=== PATIENT | male | born 1950 | race Caucasian/White ===

== ENCOUNTER 2025-03-30 09:26 | Outpatient (REF) | payer MEDICARE, SELFPAY ==
[2025-03-30 14:29] LABS: Hematocrit 42.5 % (42.0-52.0); Hemoglobin 14.0 g/dl (14.0-18.0); Mean Corpuscular HGB Conc 32.9 g/dl (31.0-36.0); Mean Corpuscular Hemoglobin 32.6 pg (27.0-33.0); Mean Corpuscular Volume 99.1 fL (80.0-98.0); NRBC Abs Auto 0.000 X10*3/uL (0.0-0.012); NRBC Pct Auto 0.0 /100WBC (0.0-0.2); Platelet Count 152 X10*3/uL (160-400); Red Blood Count 4.29 X10*6/uL (4.60-5.80); White Blood Count 9.7 X10*3/uL (4.8-10.8)
[2025-03-30 14:51] LABS: Alanine Aminotransferase 19 U/L (0-40); Albumin Level 4.5 g/dL (3.5-5.0); Alkaline Phosphatase 106 U/L (39-117); Anion Gap 14 (12-20); Aspartate Amino Transferase 22 U/L (5-37); Blood Urea Nitrogen 15 mg/dL (9-16); Calcium 8.9 mg/dL (8.4-10.2); Carbon Dioxide 29 mmol/L (22-29); Chloride 105 mmol/L (96-108); Cholesterol 178 mg/dL (<200); Estimated Glomerular Filt Rate > 60; HDL Cholesterol 66 mg/dL (>40); Potassium 4.2 mmol/L (3.3-5.1); Sodium 144 mmol/L (135-145); Total Protein 7.1 g/dL (6.5-8.0); Triglycerides 110 mg/dL (<150)
[2025-03-30 15:04] LABS: Prostate Specific Antigen 1.79 ng/mL (<0.05-4.0)
== END 2025-03-30 09:27 | disposition home or self-care (01) ==
LOC: HO.WFDLDS 09:26
PROVIDERS: Visit Provider Physician Assistant Medical
DX: Z12.5 Encounter for screening for malignant neoplasm of prostate (principal); I48.19 Other persistent atrial fibrillation; E78.00 Pure hypercholesterolemia, unspecified; I26.99 Other pulmonary embolism without acute cor pulmonale; I82.402 Acute embolism and thrombosis of unspecified deep veins of left lower extremity; E78.5 Hyperlipidemia, unspecified; M06.9 Rheumatoid arthritis, unspecified; Z85.038 Personal history of other malignant neoplasm of large intestine; Z79.01 Long term (current) use of anticoagulants; Z79.899 Other long term (current) drug therapy
CPT/HCPCS: 36415; 80053; 80061; 84153; 84443; 85027; 96127; 99202

== ENCOUNTER 2025-03-30 09:26 | Outpatient (AMB) | payer MEDICARE, SELFPAY ==
--- NOTE | 2025-03-30 09:40 | MHC.PC.OV ---
Vital Signs 03/30/25 10:41 03/30/25 11:05 Height 5 ft 11 in Weight 268 lb 4 oz BMI 37.4 BP 114/68 Blood Pressure Location Lt brachial Position Sitting Pulse 102 H 70 Pulse Source Pulse Oximeter Temp 97.9 F Temp Source Temporal Artery Scan Pulse Oximetry (%) 98 Oxygen Delivery Method Room Air Intake Visit Reasons: MAMMALOGIST-PE Intake Note: Moncho presents in the office today to establish care. Allergies tree and shrub pollen Allergy (Verified 03/30/25 10:33) Congestion Medication List - Last Reconciled 03/31/25 by ROCAEL Treviño ascorbate calcium (vitamin C) 500 mg PO BID atorvastatin (Lipitor) 20 mg PO DAILY cholecalciferol (vitamin D3) 10 mcg PO DAILY folic acid 1 mg PO DAILY furosemide (Lasix) 20 mg PO DAILY loratadine (Claritin) 10 mg PO DAILY mecobalamin (vitamin B12) 1,000 mcg PO DAILY methotrexate sodium 12.5 mg PO QWEEK warfarin 5 mg PO DAILY zinc acetate (Galzin) 50 mg PO DAILY Tobacco use date assessed: 03/30/25 Fall risk assessment: No Falls in past year Last assessed Fall Risk: 03/30/25 Dental Screening Dental Screen Date: 03/30/25 Did you have a dental visit in the last 12 months?: Yes Did you have a dental problem in the last 6 months where you did not have access to dental care?: No Was dental information given to patient?: Patient has dentist HPI HPI Comments History of Present Illness Details This is a 74-year-old male with a past medical history of aortic aneurysm, DVT of the lower extremity, complex sleep apnea syndrome, colon cancer, hyperlipidemia, obstructive sleep apnea, lumbar spondylosis, rheumatoid arthritis presenting to establish care. He transferred from Dr. Vanegas. The patient has a history of persistent atrial fibrillation and aortic aneurysm. He is followed by Dr. Montilla. He was told he is not a candidate for ablation. He is treated with warfarin 5 mg daily. He is followed by the [facility] anticoagulation clinic. ZACK-he was told he could not tolerate a CPAP and was not a good surgical candidate. He presented with dyspnea on exertion in 2013 and was diagnosed with a left lower extremity DVT and multiple pulmonary emboli. He was placed on warfarin. He was subsequently diagnosed with colon cancer. He was followed by Dr. Norris until 2019 when he was released from routine follow up. He is followed by [facility]. He has a colonoscopy scheduled this fall. He was diagnosed with rheumatoid arthritis in the 1970s. He is followed by Dr. Gupta. He is currently on methotrexate. ROS: Constitutional: No unexplained weight loss, fever, chills, fatigue or night sweats. Eyes: No vision changes Respiratory: No shortness of breath, cough or sputum production. Cardiovascular: No chest pain, chest pressure or chest discomfort. No palpitations or pedal edema. Gastrointestinal: No anorexia, nausea, vomiting or diarrhea. No abdominal pain or blood in stool. Genitourinary: No dysuria, hematuria, urinary frequency. Neurologic: No headache, dizziness, syncope Psychiatric: No depression or anxiety. Physical exam: Constitutional: Alert, in no distress. Neck: Supple, Full range of motion. No lymphadenopathy. No palpable thyroid masses. Respiratory: Clear to auscultation. Cardiovascular: Irregularly irregular rhythm. No murmur. Gastrointestinal: Abdomen soft, non-tender, non-distended. Psychiatric: Normal mood and affect [facility] Medical History (Updated 03/31/25 @ 13:32 by ROCAEL Treviño) Rheumatoid arthritis ZACK (obstructive sleep apnea) Left leg DVT Multiple pulmonary emboli Pure hypercholesterolemia History of colon cancer Persistent atrial fibrillation Lumbar back pain Hospitalized for chemotherapy treatment Colon cancer Arthritis Heart palpitations Surgical History (Updated 03/30/25 @ 10:49 by Gladys Greenberg MA) Hx of colonoscopy H/O shoulder surgery Hx of knee surgery Family History (Updated 03/30/25 @ 10:41 by Gladys Greenberg MA) Mother Hypertension Stroke Father Brain tumor Social History (Updated 03/30/25 @ 10:41 by Gladys Greenberg MA) Housing: House Alcohol intake: current Patient Tobacco Use Status: Former Tobacco user Cigarette Packs Per Day: 2 Cigarettes Per Day: 40 Years Smoked: 7 e-Cigarette/Vaping Use: Never Used Second Hand Smoke Exposure: No service: No Current occupational status: retired Current occupational exposures/hazards: No Cognitive needs: No Hearing needs: No Vision needs: No Questionnaire PHQ-9 Over the last 2 weeks, how often have you been bothered by any of the following problems? 1. Little interest or pleasure in doing things: not at all 2. Feeling down, depressed, or hopeless: not at all 3. Trouble falling or staying asleep, or sleeping too much: several days 4. Feeling tired or having little energy: several days 5. Poor appetite or overeating: not at all 6. Feeling bad about yourself - or that you are a failure or have let yourself or your family down: not at all 7. Trouble concentrating on things, such as reading the newspaper or watching television: not at all 8. Moving or speaking so slowly that other people could have noticed. Or the opposite - being so fidgety or restless that you have been moving around a lot more than usual: not at all 9. Thoughts that you would be better off or of hurting yourself in some way: not at all Total score: 2 Depression Screening Interpretation: Negative Depression Screening Done: Yes 60238 - PHQ-9 Billing: Yes Source: Developed by Drs. Stephen Sheppard, Deyanira Sanders, Shantanu Love and colleagues, with an educational sonia from [employer]. Thrive Questionnaire Date Thrive assessed: 03/30/25 I am a: Patient What is your living situation today?: I have a steady place to live Within the past 12 months, did the food you bought not last and you didn't have the money to get more?: Never true Within the past 12 months, did you worry whether your food would run out before you got money to buy more?: Never true Do you have trouble paying for medicines?: No Do you have trouble getting transportation to medical appointments?: No Do you have trouble paying your heating and electricity bill?: No Do you have trouble taking care of your child, family member or friend?: No Do you have trouble with day-to-day activities such as bathing, preparing meals, shopping, managing finances, etc.?: No Are you currently unemployed and looking for a job?: No Are you interested in more education?: No Please select the resources that you would like help with: None Currently or been in a relationship where the following occur: No concerns reported THRIVE Score: 0 AUDIT C Alcohol Use Questionnaire (AUDIT-C) 1. How often do you have a drink containing alcohol?: 4 or more times a week 2. How many drinks containing alcohol do you have on a typical day when you are drinking?: 1 or 2 3. How often do you have six or more drinks on one occasion?: Less than monthly Total Score: 5 POLLO-7 AMB Questionnaire POLLO-7 Date POLLO - 7 assessed: 03/30/25 Feeling nervous, anxious, or on edge: 0 = Not at all Not being able to stop or control worryin = Not at all Worrying too much about different things: 0 = Not at all Trouble relaxin = Not at all Being so restless that it is hard to sit still: 0 = Not at all Becoming easily annoyed or irritable: 1 = Several days Feeling afraid as if something awful might happen: 0 = Not at all Total POLLO-7 score (0-4 normal; 5-9 mild; 10-14 moderate; 15-21 severe): 1 Source: Developed by Drs. Stephen Sheppard, Deyanira Sanders, Shantanu Love and colleagues, with an educational sonia from [employer]. Physical exam (Primary Care) Vital Signs: Last Vital Signs Temp 97.9 F 03/30/25 10:41 Pulse 70 03/30/25 11:05 BP 114/68 03/30/25 10:41 Pulse Ox 98 03/30/25 10:41 Oxygen Delivery Method Room Air 03/30/25 10:41 BMI result Body Mass Index 37.4 Tobacco/Smoking Status: Tobacco use Status Tobacco use date assessed 03/30/25 03/30/25 10:49 Patient Tobacco Use Status Former Tobacco user 03/30/25 10:49 e-Cigarette/Vaping Use Never Used 03/30/25 10:49 PHQ-9: PHQ-9 Score PHQ-9: Total score 2 03/30/25 10:54 Depression Screening Interpretation: Negative Thrive Assessment: Date of Thrive Assessment Date Thrive assessed 03/30/25 03/30/25 09:41 Currently or been in a relationship where the following occur: No concerns reported Coding Level of Care Code New Pt Level 4 (90671) Complex EM visit Add On G2211 Diagnoses Persistent atrial fibrillation I48.19 History of colon cancer Z85.038 Pure hypercholesterolemia E78.00 Multiple pulmonary emboli I26.99 Left leg DVT I82.402 ZACK (obstructive sleep apnea) G47.33 Rheumatoid arthritis M06.9 Additional Codes PHQ-9 - 21516 - PHQ-9 Billing: Yes ([id number]) Assessment & Plan Assessment & Plan (1) Persistent atrial fibrillation: Code(s): I48.19 - Other persistent atrial fibrillation Category: Medical Plan: Rate controlled. Followed by Cardiology. Anticoagulated on warfarin. (2) History of colon cancer: Code(s): Z85.038 - Personal history of other malignant neoplasm of large intestine Category: Medical Plan: He has a colonoscopy scheduled for surveillance. No known recurrence. (3) Pure hypercholesterolemia: Code(s): E78.00 - Pure hypercholesterolemia, unspecified Category: Medical Plan: Continue atorvastatin. Recommended Mediterranean diet. Check lipid profile. (4) Multiple pulmonary emboli: Code(s): I26.99 - Other pulmonary embolism without acute cor pulmonale Category: Medical Plan: Evaluated by Hematology. Anticoagulated on warfarin. (5) Left leg DVT: Code(s): I82.402 - Acute embolism and thrombosis of unspecified deep veins of left lower extremity Category: Medical Plan: See above. (6) ZACK (obstructive sleep apnea): Code(s): G47.33 - Obstructive sleep apnea (adult) (pediatric) Category: Medical Plan: Recommended weight loss. Patient intolerant to CPAP and was told he was not a candidate for surgery. (7) Rheumatoid arthritis: Code(s): M06.9 - Rheumatoid arthritis, unspecified Category: Medical Plan: Followed by Rheumatology. Plan Schedule follow up in 6 months. Orders: Orders TSH reflex Free T4 03/30/25 E78.00 - Pure hypercholesterolemia, unspecified, I26.99 - Other pulmonary embolism without acute cor pulmonale, I48.19 - Other persistent atrial fibrillation, I82.402 - Acute embolism and thrombosis of unspecified deep veins of left lower extremity, Z85.038 - Personal history of other malignant neoplasm of large intestine Prostate Specific Antigen 03/30/25 E78.00 - Pure hypercholesterolemia, unspecified, I26.99 - Other pulmonary embolism without acute cor pulmonale, I48.19 - Other persistent atrial fibrillation, I82.402 - Acute embolism and thrombosis of unspecified deep veins of left lower extremity, Z12.5 - Encounter for screening for malignant neoplasm of prostate, Z85.038 - Personal history of other malignant neoplasm of large intestine Lipid Panel 03/30/25 E78.00 - Pure hypercholesterolemia, unspecified, E78.5 - Hyperlipidemia, unspecified, I26.99 - Other pulmonary embolism without acute cor pulmonale, I48.19 - Other persistent atrial fibrillation, I82.402 - Acute embolism and thrombosis of unspecified deep veins of left lower extremity, Z85.038 - Personal history of other malignant neoplasm of large intestine Comprehensive Met. Panel 03/30/25 E78.00 - Pure hypercholesterolemia, unspecified, I26.99 - Other pulmonary embolism without acute cor pulmonale, I48.19 - Other persistent atrial fibrillation, I82.402 - Acute embolism and thrombosis of unspecified deep veins of left lower extremity, Z85.038 - Personal history of other malignant neoplasm of large intestine Complete Blood Count no Diff 03/30/25 E78.00 - Pure hypercholesterolemia, unspecified, I26.99 - Other pulmonary embolism without acute cor pulmonale, I48.19 - Other persistent atrial fibrillation, I82.402 - Acute embolism and thrombosis of unspecified deep veins of left lower extremity, Z85.038 - Personal history of other malignant neoplasm of large intestine
[2025-03-30 10:41] VITALS: BP 114/68; PULSE 102; TEMP 36.6; O2SAT 98; BMI 37.4
--- OUTSIDE RECORDS SUMMARY | 2025-03-30 10:58 | XMS_ITS | Clinical Summary ---
Author Organization [address] [place] [address] Address [address] [place] [address] Phone Care Team Providers Care Shipping Clerk Packing Name Role Phone Reyes Vanegas MD Primary Care Provider [phone] Allergies No known active allergies Medications furosemide (LASIX) 20 mg tablet Take 1 tablet (20 mg total) by mouth 1 (one) time each day. 04/14/2024 Active methotrexate 2.5 mg tablet Take 5 Tablets by mouth once a week. Active ascorbic acid (VITAMIN C) 500 mg tablet Take 2 tablets (1,000 mg total) by mouth 1 (one) time each day. Active ZINC ORAL Take 1 tablet by mouth 1 (one) time each day. Zinc 40 MG Tab Active warfarin (COUMADIN) 5 mg tablet Take 1 Tablet by mouth daily. at 5:00 PM [facility]madin clinic Active folic acid (FOLVITE) 1 mg tablet Take 1 mg by mouth daily. Active cyanocobalamin (VITAMIN B-12) 1,000 mcg tablet Take 1 tablet (1,000 mcg total) by mouth 1 (one) time each day. Active cholecalciferol (VITAMIN D-3) 25 mcg (1,000 unit) tablet Take 1 tablet (1,000 Units total) by mouth 1 (one) time each day. Active atorvastatin (LIPITOR) 20 mg tablet TAKE 1 TABLET BY MOUTH AT BEDTIME 90 tablet 2 08/02/2024 Active Active Problems Problem Noted Date Diagnosed Date HLD (hyperlipidemia) 10/28/2021 Allergic rhinitis 01/01/2018 Diverticulosis 01/01/2018 Osteoarthritis 01/01/2018 Overview (05/24/2024): Thoracic & Lumbosacral spine Osteopenia 01/01/2018 Thoracic ascending aortic aneurysm ([facility] V24) 01/01/2018 Overview (05/24/2024): 2017 CT, 4.4 x 4.5, stable- Tubular adenoma of colon 01/01/2018 Overview (05/24/2024): 2014 Surgical History Surgery Date Site/Laterality Comments OTHER SURGICAL HISTORY 05/01/2014 PROCEDURE: AR UNLISTED PX MECKEL'S DIVERTICULUM & MESENTERY; COMMENT: Rectosigmoid resection BACK SURGERY PROCEDURE: HISTORICAL BACK SURGERY; COMMENT: L5 discectomy KNEE ARTHROSCOPY Right PROCEDURE: AR ARTHROSCOPY AID TX SPINE&/FX KNEE W/O FIXJ SHOULDER ARTHROSCOPY Right PROCEDURE: AR SURGICAL ARTHROSCOPY SHOULDER W/LSS&RESCJ ADS COLONOSCOPY 12/22/2014 PROCEDURE: HISTORICAL COLONOSCOPY; COMMENT: Tubular adenoma Medical History Medical History Date Comments Osteoarthritis 01/01/2018 DX:Osteoarthriti s; COMMENT: Thoracic & Lumbosacral spine Diverticulosis 01/01/2018 DX:Diverticulosi s History of DVT (deep vein thrombosis) 01/01/2018 DX:History of DVT (deep vein thrombosis); COMMENT: 2013,LLE History of pulmonary embolism 01/01/2018 DX :History of pulmonary embolism; COMMENT: 2013 Thoracic ascending aortic an eurysm ([facility] V24) 01/01/2018 DX:Thoracic ascending aortic aneurysm (HCC); COMMENT: 2016 CT, 4.4 x 4.5, stable History of colorectal cancer 01/01/2018 DX: History of colorectal cancer; COMMENT: 2013 T3 N0, 3 of 45 nodes demonstating isolated tumor cells,, Resection, s/p Xelox Tubular adenoma of colon 01/01/2018 DX:Tubu lar adenoma of colon; COMMENT: 2014 Osteopenia 01/01/2018 DX:Osteopenia Allergic rhinitis 01/01/2018 DX:Allergic rh initis Social History Tobacco Use Types Packs/Day Years Used Date Smoking Tobacco: Former Cigarettes Smokeless Tobacco: Never Alcohol Use Standard Drinks/Week Comments Yes 0 (1 standard drink = 0.6 oz pur e alcohol) Sex and Gender Information Value Date Recorded Sex Assigned at Not on file Legal Sex Male 7:36 AM EST Gender Identity Not on file Sexual Orientation Not on file Obstetrics History Last Filed Vital Signs Vital Sign Reading Time Taken Comments Blood Pressure 123/78 05/25/2024 2:38 PM EST Pulse 80 03/11/2024 8:50 AM EDT Temperature - - Respiratory Rate - - Oxygen Saturation - - Inhaled Oxygen Concentration - - Weight 123 kg (271 lb) 05/25/2024 2:38 PM EST Height 180.3 cm (5' 11 ) 05/25/2024 2:38 PM EST Body Mass Index 37.8 05/25/2024 2:38 PM EST Plan of Treatment Health Maintenance Due Date Last Done Comments DTaP,Tdap,and Td Vaccines (1 - Tdap) 1968 Zoster Vaccines (1 of 2) 12/05/1999 Pneumococcal Vaccine: 50+ Years (2 of 2 - PPSV23) 04/17/2016 04/17/2015 Abdominal Aortic Aneurysm (AAA) Screen 06/28/2022 Cholesterol Screening (Lipid Panel) 06/28/2022 Colorectal Cancer Screening: Colonoscopy 06/28/2022 12/22/2014 Falls Risk Assessment 06/28/2022 Hepatitis C Screening 06/28/2022 Medicare Annual Wellness Visit 06/28/2022 Social Influencers of Health Screening 06/28/2022 Depression Screening 07/20/2024 RSV Immunization Adult Patients (1 - 1-dose 75+ series) 2024 COVID-19 Vaccine ( season) 2025 04/29/2021, 10/19/2020, 09/28/2020 Influenza Vaccine (#1) 2025 3, 04/30/2022, 05/15/2021, Additional history exists HIB Vaccines Aged Out No longer eligi ble based on patient's age to complete this topic HPV Vaccines Aged Out No longer eligi ble based on patient's age to complete this topic Hepatitis A Vaccines Aged Out No long er eligible based on patient's age to complete this topic Hepatitis B Vaccines Aged Out No long er eligible based on patient's age to complete this topic IPV Vaccines Aged Out No longer eligi ble based on patient's age to complete this topic MMR Vaccines Aged Out No longer eligi ble based on patient's age to complete this topic Meningococcal ACWY Vaccine Aged Out N o longer eligible based on patient's age to complete this topic Meningococcal B Vaccine Aged Out No l onger eligible based on patient's age to complete this topic RSV Immunization Patients Under 20 months Aged Out No longer eligible based on patient's age to complete this topic Varicella Vaccines Aged Out No longer eligible based on patient's age to complete this topic Procedures Procedure Name Priority Date/Time Associated Diagnosis Comments COLONOSCOPY Routine 12/22/2014 from Last 3 Months or Most Recently Relevant to Health Maintenance Results * Colonoscopy (12/22/2014) Colonoscopy abstracted, no interpretation Anatomical Region Laterality Modality Other Historical Provider HEALTH MAINTENANCE Final Result from Last 3 Months or Most Recently Relevant to Health Maintenance Insurance MEDICARE [facility] Care Teams Shipping Clerk Packing Relationship Specialty Start Date End Date Reyes Vanegas MD PCP - General Internal Medicine 03/12/14
[2025-03-30 11:05] VITALS: PULSE 70
== END 2025-03-30 11:10 | disposition home or self-care (01) ==
LOC: HO.HMCFM 09:27
PROVIDERS: PCP Physician Assistant Medical; Visit Provider Physician Assistant Medical
DX: I48.19 Other persistent atrial fibrillation (principal); I26.99 Other pulmonary embolism without acute cor pulmonale; I82.402 Acute embolism and thrombosis of unspecified deep veins of left lower extremity; M06.9 Rheumatoid arthritis, unspecified; Z85.038 Personal history of other malignant neoplasm of large intestine; E78.00 Pure hypercholesterolemia, unspecified; G47.33 Obstructive sleep apnea (adult) (pediatric)

== ENCOUNTER 2025-05-29 08:57 | Outpatient (REF) | payer MEDICARE, SELFPAY ==
--- OUTSIDE RECORDS SUMMARY | 2025-05-29 09:36 | XMS_ITS | Clinical Summary ---
Author Organization [address] [place] [address] Address [address] [place] [address] Phone Care Team Providers Care Provider Relations Representative Name Role Phone Beatris No Primary Care Provider [phone] Allergies No known active allergies Medications furosemide [...] Tablet by mouth daily. at 5:00 PM [facility] coumadin clinic Active folic acid (FOLVITE) 1 [...] TABLET BY MOUTH AT BEDTIME 90 tablet 04/24/2025 Active Active Problems Problem Noted Date Diagnosed Date HLD (hyperlipidemia) 10/28/2021 Assessment & Plan (05/15/2025 10:38 AM EDT): Orders: ECG 12 lead Allergic rhinitis 01/01/2018 Diverticulosis 01/01/2018 Osteoarthritis 01/01/2018 Overview (05/24/2024): Thoracic & Lumbosacral spine Osteopenia 01/01/2018 Thoracic ascending aortic aneurysm (CMS/HCC V24) 01/01/2018 Overview (05/24/2024): 2017 CT, 4.4 x 4.5, stable- Assessment & Plan (05/15/2025 10:38 AM EDT): Orders: CT Angio Chest wo and/or w Contrast; Future Tubular adenoma of colon 01/01/2018 Overview (05/24/2024): 2015 Encounters Date Type Department Care Team Description 05/23/2025 Telephone [facility] - [facility] [address] [facility] [address] [place] [phone] Jorge Montilla MD 05/15/2025 9:50 AM EDT Office Visit [facility] [address] [place] [phone] Jorge Montilla MD Aneurysm of ascending aorta without rupture (CMS/HCC V24) (Primary Dx); Chronic atrial fibrillation (CMS/HCC V24, CMS/HCC V28); Hyperlipidemia, unspecified hyperlipidemia type 05/04/2025 Results Follow-Up [facility] [address] [place] [id number] Cara Wilkinson NP 05/01/2025 Telephone [facility] [address] [place] [phone] Carlos Barth MA from Last 3 Months Surgical History Surgery Date Site/Laterality Comments OTHER [...] COMMENT: 2013 Thoracic ascending aortic an eurysm (CMS/HCC V24) 01/01/2018 DX:Thoracic ascending aortic aneurysm (HCC); [...] Sign Reading Time Taken Comments Blood Pressure 130/80 05/15/2025 10:03 AM EDT Pulse 81 05/15/2025 10:03 AM EDT Temperature - - Respiratory Rate - - Oxygen Saturation 98% 05/15/2025 10:03 AM EDT Inhaled Oxygen Concentration - - Weight 123 kg (271 lb) 05/15/2025 10:03 AM EDT Height 177.8 cm (5' 10 ) 05/15/2025 10:03 AM EDT Body Mass Index 38.88 05/15/2025 10:03 AM EDT Plan of Treatment Health Maintenance Due Date Last Done Comments Zoster Vaccines (1 of 2) 12/05/1999 Colorectal Cancer Screening: Colonoscopy 12/22/2016 12/22/2014 Abdominal Aortic Aneurysm (AAA) Screen 06/28/2022 Cholesterol Screening (Lipid Panel) 06/28/2022 Falls Risk Assessment 06/28/2022 Hepatitis C Screening 06/28/2022 Medicare Annual Wellness Visit 06/28/2022 Social Influencers of Health Screening 06/28/2022 Depression Screening 07/20/2024 RSV Immunization Adult Patients (1 - 1-dose 75+ series) 2024 COVID-19 Vaccine (7 - Pfizer risk season) 2025 06/07/2024, 04/27/2023, 04/07/2022, Additional history exists DTaP,Tdap,and Td Vaccines (2 - Td or Tdap) 05/22/2025 05/22/2015 Pneumococcal Vaccine: 50+ Years Completed 06/13/2016, 04/17/2015 Influenza Vaccine Completed 05/08/2025, , 04/27/2023, Additional history exists HIB Vaccines Aged Out [...] Procedure Name Priority Date/Time Associated Diagnosis Comments ECG 12-LEAD Routine 05/15/2025 10:08 AM EDT Hyperlipidemia, unspecified hyperlipidemia type EXTERNAL CLINICAL LAB Routine 05/03/2025 2:40 PM EDT EXTERNAL CLINICAL LAB Routine 05/01/2025 9:57 AM EDT HM COLONOSCOPY Routine 12/22/2014 from Last 3 Months or Most Recently Relevant to Health Maintenance Results * ECG 12 lead (05/15/2025 10:08 AM EDT) Ventricular Rate ECG 81 BPM GEMUSE Atrial Rate 81 BPM GEMUSE QRS Duration 96 ms GEMUSE Q-T Interval 394 ms GEMUSE QTc 457 ms GEMUSE R [place] 49 degrees GEMUSE T [place] 25 degrees GEMUSE ECG Interpretation Atrial fibrillation Nonspecific T wave abnormality Abnormal ECG When compared with ECG of 01-MAY-2014 09:56, Atrial fibrillation has replaced Sinus rhythm Nonspecific T wave abnormality now evident in Lateral leads Confirmed by MD Roldan, Jorge ([id number]) on 05/15/2025 11:02:41 AM GEMUSE 05/15/2025 10:0 8 AM EDT 05/15/2025 11:02 AM EDT Jorge Montilla MD ECG ORDERABLES Final Res ult GEMUSE * External clinical lab (05/03/2025 2:40 PM EDT) Only the most recent of2 resultswithin the time period is included. Historical Provider LAB BLOOD ORDERABLES Edit ed Result - Final * Hm Colonoscopy (12/22/2014) HM Colonoscopy abstracted, no interpretation Anatomical Region Laterality Modality Other Historical Provider HEALTH MAINTENANCE Final Result from Last 3 Months or Most Recently Relevant to Health Maintenance Insurance MEDICARE [facility] Care Teams Provider Relations Representative Relationship Specialty Start Date End Date Beatris No PA [address] [place] [address] PCP - General Physician Ui Programmer 05/01/25
--- OUTSIDE RECORDS SUMMARY | 2025-05-29 09:36 | XMS_ITS | Encounter Summary ---
Author Organization [facility] Address [address] [place] [address] Care Team Providers Care Para Educator Name Role Phone Beatris No Primary Care Provider [phone] Encounter Details Date Type Department Care Team (Late st Contact Info) Description 05/04/2025 Results Follow-Up [facility] - [facility] [address] [facility] [address] [place] [phone] Cara Wilkinson NP [address] [place] [address] [place] [phone] Social History Tobacco Use Types Packs/Day Years Used Date Smoking Tobacco: Former Cigarettes Smokeless Tobacco: Never Alcohol Use Standard Drinks/Week Comments Yes 0 (1 standard drink = 0.6 oz pur e alcohol) Sex and Gender Information Value Date Recorded Sex Assigned at Not on file Legal Sex Male 7:36 AM EST Gender Identity Not on file Sexual Orientation Not on file documented as of this encounter Plan of Treatment Not on file documented as of this encounter Visit Diagnoses Not on filedocumented in this encounter Care Teams Para Educator Relationship Specialty Start Date End Date Beatris No PA [address] [place] [phone] PCP - General Physician Mellowing Machine Operator 05/01/25 documented as of this encounter
--- OUTSIDE RECORDS SUMMARY | 2025-05-29 09:36 | XMS_ITS | Encounter Summary ---
Author Organization [facility] Address [address] [place] [address] Care Team Providers Care Metal Sheet Roller Operator Name Role Phone Beatris No Primary Care Provider [phone] Reason for Visit * Reason Onset Date Comments Appointment 05/23/2025 CTA Chest Encounter Details Date Type Department Care Team (Late st Contact Info) Description 05/23/2025 Telephone [facility] - [facility] [address] [facility] [address] [place] [address] Jorge Montilla MD [address] [place] [address] [place] [address] Social History Tobacco Use Types Packs/Day Years [...] on file documented as of this encounter Progress Notes * Sandra Case - 05/24/2025 12:52 PM EST Pt is scheduled for a CTA Chest scan on 06/16/25, at 10:30am, @ [facility]. Order and ov note faxed.Letter mailed. * Sandra Case - 05/23/2025 1:42 PM EST Order, demos and ov note have been faxed to [facility] scheduling to schedule pt for a CTA Chest scan at [place]. Waiting for appointment. documented in this encounter Plan of Treatment Not on file documented as of this encounter Visit Diagnoses Not on filedocumented in this encounter Care Teams Metal Sheet Roller Operator Relationship Specialty Start Date End Date Beatris No PA [address] [place] [address] PCP - General Physician It Program Auditor 05/01/25 documented as of this encounter
[2025-05-29 11:20] LABS: MANUAL DIFF FLAG NO
[2025-05-29 11:27] LABS: Hematocrit 38.6 % (42.0-52.0); Hemoglobin 12.4 g/dl (14.0-18.0); Imm Gran Abs Auto 0.05 X10*3/uL (0.00-0.03); Imm Gran Pct Auto 0.7 % (0.0-0.4); Lymphocytes Absolute Auto 1.4 X10*3/uL (1.2-4.9); Mean Corpuscular HGB Conc 32.1 g/dl (31.0-36.0); Mean Corpuscular Hemoglobin 31.7 pg (27.0-33.0); Mean Corpuscular Volume 98.7 fL (80.0-98.0); NRBC Abs Auto 0.000 X10*3/uL (0.0-0.012); NRBC Pct Auto 0.0 /100WBC (0.0-0.2); Platelet Count 193 X10*3/uL (160-400); Red Blood Count 3.91 X10*6/uL (4.60-5.80); White Blood Count 7.0 X10*3/uL (4.8-10.8)
[2025-05-29 12:35] LABS: Iron 56 mcg/dL (45-160); Percent Iron Saturation 29 % (15-50); Total Iron Binding Capacity 192 mcg/dL (228-428); Unsaturated Iron Binding 136 ug/dL
[2025-05-29 12:37] LABS: Ferritin 527 ng/mL (20-250)
[2025-05-29 13:09] LABS: Folate 15.9 ng/mL (> or = 4.0); Vitamin B12 525 pg/mL (200-900)
== END 2025-05-29 08:58 | disposition home or self-care (01) ==
LOC: HO.WFDLDS 08:57
PROVIDERS: Visit Provider Physician Assistant Medical
DX: D75.89 Other specified diseases of blood and blood-forming organs (principal); D64.9 Anemia, unspecified; D69.6 Thrombocytopenia, unspecified; R73.9 Hyperglycemia, unspecified
CPT/HCPCS: 36415; 82607; 82728; 82746; 83036; 83540; 85025

== ENCOUNTER 2025-07-10 10:30 | Outpatient (AMB) | payer MEDICARE, SELFPAY ==
--- NOTE | 2025-07-10 10:26 | A.OFFPC_ITS ---
Intake Visit Reasons: F/U Labs Intake Note: Moncho presents for a telehealth appointment to go over his recent lab resutls. Campground Attendant Required: No Allergies tree and shrub pollen Allergy (Verified 07/10/25 10:27) Congestion Tobacco use date assessed: 07/10/25 Dental Screening Dental Screen Date: 07/10/25 Did you have a dental visit in the last 12 months?: Yes Did you have a dental problem in the last 6 months where you did not have access to dental care?: No Was dental information given to patient?: Patient has dentist HPI HPI Comments History of Present Illness Details This is a 74-year-old male with a past medical history of aortic aneurysm, DVT of the lower extremity, complex sleep apnea syndrome, colon cancer, hyperlipidemia, obstructive sleep apnea, lumbar spondylosis, rheumatoid arthritis presenting for follow up. I saw him for a new patient visit on 03/30/2025. Initial labs that day showed red blood cell count 4.29, normal H&H at 14 and 42.5, MCV mildly elevated at 99.1 and platelet count decreased at 152,000. Renal function, liver function , cholesterol, PSA and TSH normal. He had lab work repeated on 05/29/2025. Red blood cell count decreased to 3.91, hemoglobin and hematocrit low at 12.4 and 38.6, MCV 98.7, platelets normalized at 193,000. Differential was essentially normal aside from mild elevation and immature granulocytes. Iron was normal at 56, TIBC low at 192, ferritin elevated at 527, B12 and folic acid normal. Patient says he is on ferrous sulfate 65 mg every day. He does not feel fatigued and denies bleeding or bruising or blood in stools. He went to [facility] in May for colonoscopy however the prep was of poor quality, and he is waiting to hear about scheduling another colonoscopy with [facility]. The patient has a history of persistent atrial fibrillation and aortic aneurysm. He is followed by Dr. Montilla. He was told he is not a candidate for ablation. He is treated with warfarin 5 mg daily. He is followed by the [facility] anticoagulation clinic. ZACK-he was told he could not tolerate a CPAP and was not a good surgical candidate. He presented with dyspnea on exertion in 2013 and was diagnosed with a left lower extremity DVT and multiple pulmonary emboli. He was placed on warfarin. He was subsequently diagnosed with colon cancer. He was followed by Dr. Norris until 2019 when he was released from routine follow up. He is followed by [facility]. He was diagnosed with rheumatoid arthritis in the 1970s. He is followed by Dr. Gupta. He is currently on methotrexate. ROS: Constitutional: No unexplained weight loss, fever, chills, fatigue or night sweats. Eyes: No vision changes Respiratory: No shortness of breath, cough or sputum production. Cardiovascular: No chest pain, chest pressure or chest discomfort. No palpitations or pedal edema. Gastrointestinal: No anorexia, nausea, vomiting or diarrhea. No abdominal pain or blood in stool. Genitourinary: No dysuria, hematuria, urinary frequency. Neurologic: No headache, dizziness, syncope Psychiatric: No depression or anxiety. [facility] Medical History (Updated 07/10/25 @ 11:39 by ROCAEL Treviño) Elevated ferritin Mild anemia Macrocytosis Low platelet count Rheumatoid arthritis ZACK (obstructive sleep apnea) Left leg DVT Multiple pulmonary emboli Pure hypercholesterolemia History of colon cancer Persistent atrial fibrillation Lumbar back pain Hospitalized for chemotherapy treatment Colon cancer Arthritis Heart palpitations Surgical History (Updated 03/30/25 @ 10:49 by Gladys Greenberg MA) Hx of colonoscopy H/O shoulder surgery Hx of knee surgery Family History Mother Hypertension Stroke Father Brain tumor Social History (Updated 07/10/25 @ 10:28 by Gladys Greenberg CMA) Housing: House Alcohol intake: current Patient Tobacco Use Status: Former Tobacco user Cigarette Packs Per Day: 2 Cigarettes Per Day: 40 Years Smoked: 7 Packs Per Year: 14 Packs per year/per ci.00 e-Cigarette/Vaping Use: Never Used Second Hand Smoke Exposure: No Use of substances other than those prescribed or required for medical reasons: No service: No Current occupational status: retired Current occupational exposures/hazards: No Cognitive needs: No Hearing needs: No Vision needs: No Questionnaire Thrive Questionnaire Date Thrive assessed: 03/30/25 POLLO-7 AMB Questionnaire POLLO-7 Date POLLO - 7 assessed: 03/30/25 Source: Developed by Drs. Stephen Sheppard, Deyanira Sanders, Shantanu Love and colleagues, with an educational sonia from [employer] Physical exam (Primary Care) Tobacco/Smoking Status: Tobacco use Status Tobacco use date assessed 07/10/25 07/10/25 10:29 Patient Tobacco Use Status Former Tobacco user 07/10/25 10:28 e-Cigarette/Vaping Use Never Used 07/10/25 10:28 Thrive Assessment: Date of Thrive Assessment Date Thrive assessed 03/30/25 07/10/25 10:26 Telehealth Telehealth Telehealth Platform: Telephone Location of provider rendering services: practice address Location of patient: address on file Patient Identification confirmed using: Name, : Yes Telehealth method: voice only Patient verbally consented to treatment: Yes Patient verbally consented to billing insurance company: Yes Patient informed of any privacy concerns related to visit: Yes Minutes spent on Phone/Video with Pt.: 12 Coding Level of Care Code Tele Est Pt Level 3 (79780) Add On Problem Visit Only Diagnoses Mild anemia D64.9 Elevated ferritin R79.89 History of colon cancer Z85.038 Rheumatoid arthritis M06.9 Persistent atrial fibrillation I48.19 Assessment & Plan Assessment & Plan (1) Mild anemia: Code(s): D64.9 - Anemia, unspecified Category: Medical (2) Elevated ferritin: Code(s): R79.89 - Other specified abnormal findings of blood chemistry Category: Medical (3) History of colon cancer: Code(s): Z85.038 - Personal history of other malignant neoplasm of large intestine Category: Medical (4) Rheumatoid arthritis: Code(s): M06.9 - Rheumatoid arthritis, unspecified Category: Medical (5) Persistent atrial fibrillation: Code(s): I48.19 - Other persistent atrial fibrillation Category: Medical Plan Patient has mild anemia on repeat labs which is a little worse than March . This could be due to his underlying autoimmune disease or medication. He does have to get another colonoscopy because of the poor prep this May and is waiting to hear back from the gastroenterology department about this at [facility]. Elevated ferritin may be due to taking his iron supplement. I will have him hold it for 3 days before next labs and repeat them in a month. If he experiences increased fatigue, dizziness or shortness of breath or bleeding or bruising he would contact the office immediately. Anemia is mild, and he has no symptoms concerning for peptic ulcer disease or colitis. He denies any bleeding or bruising. No indication to hold warfarin at this time, but CBC does need to be repeated. Orders: Orders Complete Blood Count Auto Diff 1 Month D64.9 - Anemia, unspecified Pathologist Review - CBC 1 Month D64.9 - Anemia, unspecified Ferritin 1 Month D64.9 - Anemia, unspecified IRON PROFILE 1 Month D64.9 - Anemia, unspecified Vitamin B12 and Folate 1 Month D64.9 - Anemia, unspecified
--- OUTSIDE RECORDS SUMMARY | 2025-07-10 12:54 | XMS_ITS | Clinical Summary ---
Author Organization [address] [place] [address] Address [address] [place] [address] Phone Care Team Providers Care Photographic Process Worker Name Role Phone Beatris No Primary Care Provider [phone] Allergies No known active allergies Medications furosemide [...] Tablet by mouth daily. at 5:00 PM [facility] coumadin clinic Active folic acid (FOLVITE) [...] spine Osteopenia 01/01/2018 Thoracic ascending aortic aneurysm 01/01/2018 Overview (05/24/2024): 2017 CT, 4.4 x 4.5, stable- Assessment & Plan (05/15/2025 10:38 AM EDT): Orders: CT Angio Chest wo and/or w Contrast; Future Tubular adenoma of colon 01/01/2018 Overview (05/24/2024): 2015 Encounters Date Type Department Care Team Description 05/23/2025 Telephone [facility] - [facility] [address] [facility] [address] [place] [phone] Jorge Montilla MD 05/15/2025 9:50 AM EDT Office Visit [facility] [address] [facility] [address] [place] [phone] Jorge Montilla MD Aneurysm of ascending aorta without rupture (CMS/HCC V24) (Primary Dx); Chronic atrial fibrillation (CMS/HCC V24, CMS/HCC V28); Hyperlipidemia, unspecified hyperlipidemia type 05/04/2025 Results Follow-Up [facility] [address] [facility] [address] [place] [address] Cara Wilkinson NP 05/01/2025 Telephone [facility] [address] [facility] [address] [place] [phone] Carlos Barth MA from Last 3 Months Surgical History Surgery Date Site/Laterality Comments OTHER SURGICAL HISTORY 05/01/2014 PROCEDURE: VT UNLISTED PX MECKEL'S DIVERTICULUM & MESENTERY; COMMENT: Rectosigmoid resection BACK SURGERY PROCEDURE: HISTORICAL BACK SURGERY; COMMENT: L5 discectomy KNEE ARTHROSCOPY Right PROCEDURE: VT ARTHROSCOPY AID TX SPINE&/FX KNEE W/O FIXJ SHOULDER ARTHROSCOPY Right PROCEDURE: VT SURGICAL ARTHROSCOPY SHOULDER W/LSS&RESCJ ADS COLONOSCOPY 12/22/2014 [...] COMMENT: 2013 Thoracic ascending aortic an eurysm ([facility]/HCC V24) 01/01/2018 DX:Thoracic ascending aortic aneurysm (HCC); [...] on file Sexual Orientation Not on file Last Filed Vital Signs Vital Sign Reading [...] - 1-dose 75+ series) 2024 COVID-19 Vaccine (2024- season) 2025 06/07/2024, 04/27/2023, 04/07/2022, Additional history [...] CLINICAL LAB Routine 05/01/2025 9:57 AM EDT COLONOSCOPY Routine 12/22/2014 from Last 3 Months or Most Recently Relevant to Health Maintenance Results * ECG 12 lead (05/15/2025 10:08 AM EDT) Ventricular Rate ECG 81 BPM GEMUSE Atrial Rate 81 BPM GEMUSE QRS Duration 96 ms GEMUSE Q-T Interval 394 ms GEMUSE QTc 457 ms GEMUSE R [place] 49 degrees GEMUSE T [place] 25 degrees GEMUSE ECG Interpretation Atrial fibrillation Nonspecific T wave abnormality Abnormal ECG When compared with ECG of 01-MAY-2014 09:56, Atrial fibrillation has replaced Sinus rhythm Nonspecific T wave abnormality now evident in Lateral leads Confirmed by MD Roldan, Cered[place] ([id number]) on 05/15/2025 11:02:41 AM GEMUSE 05/15/2025 10:0 8 AM EDT 05/15/2025 11:02 AM EDT Jorge Montilla MD ECG ORDERABLES Final Res ult GEMUSE * External clinical lab (05/03/2025 2:40 PM EDT) Only the most recent of2 resultswithin the time period is included. Historical Provider LAB BLOOD ORDERABLES Edit ed Result - Final * Colonoscopy (12/22/2014) Colonoscopy abstracted, no interpretation Anatomical Region Laterality Modality Other Historical Provider HEALTH MAINTENANCE Final Result from Last 3 Months or Most Recently Relevant to Health Maintenance Insurance MEDICARE [facility] Care Teams Photographic Process Worker Relationship Specialty Start Date End Date Beatris No PA [address] [place] [address] PCP - General Physician District Court Bailiff 05/01/25
--- OUTSIDE RECORDS SUMMARY | 2025-07-10 12:54 | XMS_ITS | Encounter Summary ---
Author Organization [facility] [address] Address [address] [place] [address] Care Team Providers Care Commuter Pilot Name Role Phone Beatris No Primary Care Provider Encounter Details Date Type Department Care Team (Late st Contact Info) Description 05/04/2025 Results Follow-Up [facility] - [facility] [address] [facility] [address] [place] [phone] Cara Wilkinson NP [address] [place] [address] [place] [phone] Social History Tobacco Use Types Packs/Day Years [...] on filedocumented in this encounter Care Teams Commuter Pilot Relationship Specialty Start Date End Date Beatris No PA [address] [place] [phone] PCP - General Physician Corporate Associate Attorney 05/01/25 documented as of this encounter
== END 2025-07-10 11:08 | disposition home or self-care (01) ==
LOC: HO.HMCFM 10:30
PROVIDERS: PCP Physician Assistant Medical; Visit Provider Physician Assistant Medical
DX: M06.9 Rheumatoid arthritis, unspecified (principal); I48.19 Other persistent atrial fibrillation; D64.9 Anemia, unspecified; R79.89 Other specified abnormal findings of blood chemistry; Z85.038 Personal history of other malignant neoplasm of large intestine